=== PATIENT | female | born 1955 ===

== ENCOUNTER 2018-11-22 10:36 | Emergency (ER) | payer OTHER ==
[2018-11-22 10:36] VITALS: BMI 33.5
[2018-11-22 10:51] VITALS: RESP 18; TEMP 98.2
[2018-11-22] MEDS ORDERED: Lidocaine 2% MPF (5 ml) Inj ONE (10:51)
[2018-11-22] MEDS ORDERED: Lidocaine 2% Inj (20ml) INFIL ONE (11:19)
[2018-11-22] MEDS ORDERED: Bacitracin 500 Units/gm Oint Foilpak UD TOP ONE (11:20)
[2018-11-22] MEDS ORDERED: Bacitracin 500 Units/gm Oint Foilpak UD ONE (11:23)
[2018-11-22 11:41] VITALS: BP 128/72; PULSE 68; O2SAT 96
--- NOTE | 2018-11-22 14:54 | C.PDOC ---
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 Patient states that her last tetanus vaccination was last year. She denies weakness, numbness, and other focal deficits. Time Seen by Provider: 11/22/18 10:53 Chief Complaint (Nursing): Abnormal Skin Integrity History Per: Patient History/Exam Limitations: no limitations Onset/Duration Of Symptoms: Hrs Current Symptoms Are (Timing): Still Present Location Of Injury: Right: Hand (thumb) Quality Of Symptoms: Other (laceration) Past Medical History Reviewed: Historical Data, Nursing Documentation, Vital Signs Vital Signs: Last Vital Signs Temp 98.2 F 11/22/18 10:47 Pulse 68 11/22/18 11:40 Resp 18 11/22/18 11:40 BP 128/72 11/22/18 11:40 Pulse Ox 96 11/22/18 11:40 - Medical History PMH: Arthritis, Asthma, Gastritis, Migraine Denies: Chronic Kidney Disease Surgical History: No Surg Hx Family History: States: No Known Family Hx - Social History Hx Alcohol Use: Yes Hx Substance Use: No - Immunization History Hx Tetanus Toxoid Vaccination: Yes Hx Influenza Vaccination: No Hx Pneumococcal Vaccination: No Review Of Systems Except As Marked, All Systems Reviewed And Found Negative. Constitutional: Negative for: Fever, Chills Gastrointestinal: Negative for: Nausea, Vomiting Skin: Positive for: Other (laceration to right thumb) Neurological: Negative for: Weakness, Numbness Physical Exam - Physical Exam Appears: Well, Non-toxic, No Acute Distress Skin: Normal Color, Warm, Dry Head: Atraumatic, Normacephalic Eye(s): bilateral: Normal Inspection, PERRL, EOMI Neck: Normal, Supple Chest: Symmetrical Extremity: Normal ROM, Other (2cm laceration to the posterior aspect of the right thumb. NO active bleeding. ) Pulses: Left Radial: Normal, Right Radial: Normal Neurological/Psych: Oriented x3, Normal Speech ED Course And Treatment O2 Sat by Pulse Oximetry: 96 (RA) Pulse Ox Interpretation: Normal Laceration - Laceration Repair Posterior Right Thumb Wound Length (In cm): 2cm Description Of Wound: Linear Anesthesia: Lidocaine 2% (digital block) Wound Examination: Irrigated With Saline Wound Closure: Suture (4) Suture Technique And Material Used: Interrupted, Nylon (3-0) Wound Complexity: Simple Medical Decision Making Medical Decision Making: Plan: Bacitracin 1ea TOP Lidocaine 2% Disposition - Disposition Disposition: HOME/ ROUTINE Disposition Time: 11:35 Condition: GOOD Additional Instructions: AJITH HUNG, thank you for letting us take care of you today. Your provider was Rosendo Marmolejo DO and you were treated for LACERATION ON FINGER. The emergency medical care you received today was directed at your acute symptoms. If you were prescribed any medication, please fill it and take as directed. It may take several days for your symptoms to resolve. Return to the Emergency Department if your symptoms worsen, do not improve, or if you have any other problems. Please contact your doctor or call one of the physicians/clinics you have been referred to that are listed on the Patient Visit Information form that is included in your discharge packet. Bring any paperwork you were given at discharge with you along with any medications you are taking to your follow up visit. Our treatment cannot replace ongoing medical care by a primary care provider outside of the emergency department. Thank you for allowing the [facility] team to be part of your care today. Try not to bend your thumb. Followup with your doctor or the emergency room in 7-10 days for suture removal. AJITH HUNG, cony por dejarnos cuidar de usted hoy. Gonzales proveedor fue Rosendo Marmolejo DO y recibi tratamiento para LACERATION ON FINGER. La atencin mdica de emergencia que recibi hoy se dirigi a andreea sntomas agudos. Si le recetaron algn medicamento, llnelo y tmelo segn las indicaciones. Los sntomas pueden tardar varios mg en resolverse. Regrese al Departamento de Emergencias si andreea sntomas empeoran, no mejoran o si tiene otros problemas. Comunquese con gonzales mdico o llame a james de los mdicos / clnicas a los que feliz sido referido que figuran en el formulario de Informacin de visita al paciente que se incluye en gonzales paquete de mahesh. Lleve todos los documentos que le entregaron al momento del mahesh junto con todos los medicamentos que est tomando para gonzales visita de seguimiento. Nuestro tratamiento no puede reemplazar la atencin mdica continua por un proveedor de atencin primaria fuera del de partamento de emergencias. Cony por permitir que el equipo de [facility] sea parte de gonzales atencin hoy. Intenta no doblar el pulgar. Sharif un seguimiento con gonzales mdico o la hosea de emergencias en 7 a 10 mg para retirar la sutura. Prescriptions: Cephalexin [cephalexin] 500 mg PO TID #15 cap Instructions: Laceration Repair With Stitches (DC) Forms: [employer] (Sri Lankan) Print Language: MACEDONIAN - Clinical Impression Clinical Impression: Laceration of thumb - Scribe Statement The provider has reviewed the documentation as recorded by the Scribe (Eladio Goffqvi) Provider Attestation: All medical record entries made by the Scribe were at my direction and personally dictated by me. I have reviewed the chart and agree that the record accurately reflects my personal performance of the history, physical exam, medical decision making, and the department course for this patient. I have also personally directed, reviewed, and agree with the discharge instructions and disposition.
== END 2018-11-22 11:41 | disposition home or self-care (01) ==
LOC: C.ER 10:36
DX: S61.011A Laceration without foreign body of right thumb without damage to nail, initial encounter (principal); W45.8XXA Other foreign body or object entering through skin, initial encounter; Y99.0 Civilian activity done for income or pay